=== PATIENT | female | born 2000 | race Caucasian/White ===

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

== ENCOUNTER 2020-09-20 04:55 | Inpatient (IN) ==
[2020-09-20] MEDS ORDERED: Oxytocin/Ringers Lactate 20 UNITS/1,000 ML BAG IV ONE (05:02)
[2020-09-20] MEDS ORDERED: ceFAZolin SODIUM/DEXTROSE,ISO 2 GM/50 ML BAG IV PRN (05:15)
[2020-09-20] MEDS: RINGER'S SOLUTION,LACTATED 1,000 ML IV PRN ×2 (05:31→06:32)
[2020-09-20 05:44] LABS: Cocaine Ur Negative (NEGATIVE); Urine Barbiturate Negative (NEGATIVE); Urine Benzodiazepines Negative (NEGATIVE); Urine Opiates Negative (NEGATIVE); Urine PCP Negative (NEGATIVE); Urine THC Negative (NEGATIVE)
[2020-09-20] MEDS ORDERED: CLINDAMYCIN IN 0.9 % SOD CHLOR 900 MG/50 ML BAG IV ONE (06:42)
[2020-09-20] MEDS ORDERED: BUPIVACAINE HCL 50 ML VIAL IJ ONE (07:23)
[2020-09-20] MEDS ORDERED: ONDANSETRON HCL/PF 2 MG/ML VIAL ONE (07:24)
[2020-09-20] MEDS ORDERED: MIDAZOLAM HCL/PF 5 MG/ML VIAL ONE (07:24)
[2020-09-20] MEDS ORDERED: fentaNYL CITRATE/PF 50 MCG/ML AMPUL ONE (07:24)
[2020-09-20] MEDS ORDERED: diphenhydrAMINE HCL 50 MG/ML VIAL IV PRN (07:28)
[2020-09-20] MEDS ORDERED: PROCHLORPERAZINE EDISYLATE 5 MG/ML VIAL IV PRN (07:28)
[2020-09-20] MEDS ORDERED: HYDROmorphone HCL 2 MG/ML VIAL IV PRN (07:28)
[2020-09-20] MEDS ORDERED: NALOXONE HCL 0.4 MG/ML VIAL IV PRN (07:28)
--- NOTE | 2020-09-20 07:31 | ANES ---
Anesthesia Pre Procedure Eval Vitals/Labs: Last Vital Signs Temp 36.6 C 09/20/20 05:18 Pulse 88 09/20/20 05:18 Resp 16 09/20/20 05:18 BP 104/55 09/20/20 05:18 Pulse Ox 97 09/20/20 05:18 HOME MEDICATIONS prenat.vits,gray,[id number] 1 tab PO DAILY 02/28/20 [Last Taken 09/19/20] ferrous sulfate 325 mg (65 mg iron) tablet 325 mg PO BID #30 tab 06/27/20 [Last Taken 09/20/20] Allergies/Adverse Reactions: Allergies Allergy/AdvReac Type Severity Reaction Status Date / Time Penicillins Allergy Severe Hives Verified 09/11/20 13:04 - Planned Procedure Planned Procedure: c section Medication List Reviewed:: Yes Allergies Verified: Yes Medical History (Last Reviewed 09/20/20 @ 07:29 by Kenan Paul CRNA) Anemia (Acute) Onset Date: 06/27/20 w/ Asthma (Chronic) Anxiety and depression (Chronic) Anxiety Onset Date: 09/02/17 Asthma Onset Date: Unknown activity induced Auditory hallucinations Onset Date: ~11/2017 Body piercing Onset Date: Unknown Depression Onset Date: 09/02/17 Tattoos Onset Date: Unknown Chorioamnionitis Onset Date: Unknown Heart murmur Onset Date: Unknown History of self mutilation Onset Date: 09/02/17 Hypokalemia Onset Date: 01/20/18 with /time of delivery Intentional self-harm by blunt object Onset Date: Unknown previous cutter Late care Onset Date: 09/02/17 delivery Onset Date: 01/21/18 PCS 36 5/7 weeks Surgical History (Last Reviewed 09/20/20 @ 07:29 by Kenan Paul CRNA) Previous section (Chronic) x2 Previous section Onset Date: 01/21/18 01/21/2018- Failure to progress , 2019- rpt Family History (Last Reviewed 09/20/20 @ 07:30 by Kenan Paul CRNA) Father Hypertension Alcohol abuse Grandfather Diabetes maternal Hypertension Grandmother Hypertension Anxiety maternal Depression Grandmother Anxiety paternal Depression Mother Depression Anxiety Hypertension Gestational diabetes Heart murmur - Family Anesthesia History Family History:: no untoward family reactions to anesthesia, no familial bleeding tendencies, no family history of clotting disorders, no family history of premature - Airway/Neck/Teeth Teeth Condition: intact Mallampatti Score: 2 Thyromental (T-M) distance: > 6 cm Mandibulo Hyoid distance: > 3 cm - Respiratory Respiratory Physical: lungs clear - Cardiovascular Tolerate Activity: Good Heart Sounds: S1 & S2, Regular - Gastrointestinal NPO since: mn - Anesthesia Assessment and Plan ASA Class: PS, II Anesthesia Type Plan: Block - Bilateral ultrasound guided TAP blocks for postop analgesia, Spinal
[2020-09-20] MEDS ORDERED: IBUPROFEN 800 MG TABLET PO PRN (09:12)
[2020-09-20] MEDS ORDERED: BISACODYL 10 MG SUPP.RECT RC PRN (09:12)
[2020-09-20] MEDS ORDERED: ONDANSETRON HCL/PF 2 MG/ML VIAL IV PRN (09:12)
[2020-09-20] MEDS ORDERED: SENNOSIDES 8.6 MG TABLET PO PRN (09:12)
[2020-09-20] MEDS ORDERED: SIMETHICONE 80 MG TAB.CHEW PO PRN (09:12)
--- NOTE | 2020-09-20 09:19 | OR ---
Operative Report - Dictated Report Narrative: Indication: 20-year-old 3 para 2 at 39 3/7 weeks with prior section x2 desires repeat low transverse areas in section. status: Planned Pre Operative Diagnosis: Intrauterine 39-3/7 weeks. Prior section x2. Post Operative Diagnosis: Same. Procedure: Repeat low transverse section. Abdominal scar revision - 16cm Surgeon: Parag Robison DO Zinc Plate Cutter: OR Staff Anesthesia: Spinal, TAP block Estimated Blood Loss: 300 mL Urine Output: 100 mL clear urine Fluids Replacement: 1700 mL of crystalloid Drains: Calderon to gravity Surgical Complications: None Specimens: Placenta to freezer Findings: Female born at 0807 on 09/20/2020 with Apgars 9 and 9, weighing 3104 g in cephalic presentation. Very thin lower uterine segment with 3 x 7 cm window. Normal tubes and ovaries Technique: The patient was taken to the operating room and placed in dorsal supine position with a left lateral tilt. After adequate spinal anesthesia, calderon catheter inserted, SCDs placed, and 900 mg of clindamycin given preoper atively, the previous scar was excised in an elliptical fashion and the abdominal cavity was entered using sharp and blunt dissection. Two rolled laps were placed in the pericolic gutters on either side of the uterus. The window in the lower uterine segment was perforated with my finger then extended laterally and upwardly with digital traction. Clear fluid was noted upon amniotomy. The was delivered easily. After approximately 30 seconds, the cord was clamped and cut and infant was handed off to awaiting nurse. The placenta was allowed to deliver spontaneously. The uterus was cleared of clot and debris. The bladder was dissected further away from the lower uterine segment to allow greater purchase of tissue in an effort to thicken the lower uterine segment. Uterine incision was closed with 0 Vicryl using a running stitch. A second imbricating layer was placed. Excellent hemostasis was noted. The rolled laps were removed from the abdominal cavitiy. The peritoneum was closed with a running 3-0 Monocryl. The same suture was used to approximate the rectus and pyramidalis muscles. The fascia was closed with a running 0 Vicryl. The subcutaneous layer was closed with a running 3-0 Monocryl. The same suture was used to approximate the subdermal layer. The skin was closed with a running 4-0 Monocryl and Dermabond. Sponge, lap, needle, and instrument count were correct x 2. Disposition: To post anesthesia care unit in good condition
--- NOTE | 2020-09-20 09:23 | ANES ---
Post Anesthesia Discharge - Transfer of Care Transfer of Care handoff given to nurse: Yes - Discharge from PACU Discharge from PACU when meets criteria: Yes - Discharge to ASU Discharge to ASU-no complications/pt stable: Yes
--- NOTE | 2020-09-20 09:24 | ANES ---
Anesthesia Procedure Note Procedure Note: ANESTHESIA PROCEDURE NOTE Date of Procedure: 09/20/2020 Time of procedure: 914. Performed by: Kenan Paul CRNA Regional Forester: None. Preprocedure diagnosis: Repeat . Post procedure diagnosis: Same. Procedure: Bilateral ultrasound-guided transversus abdominis plane block for postop analgesia. Indications: The patient is a 20-year-old female post section. Findings: See below. Details of the procedure: ChloraPrep was used on the patient's abdomen and the procedure was performed under sterile technique. The right abdominal fascial layer between the internal oblique muscle and the transversus abdominis muscles was identified under ultrasound guidance. A 21-gauge 4 inch block needle was inserted under ultrasound guidance to the target fascial plane. 15 mL's of 0.5% bupivacaine was injected after negative aspiration for blood. The needle was removed intact and the procedure was then repeated at the left side. No complications were noted. The images were retained in the hospital medical database. EBL: Minimal. Fluids: N/A. Specimen: N/A. Post procedure condition: The patient tolerated the procedure well. No complications were noted. Thank you for this consultation. Kenan Paul CRNA
[2020-09-20] MEDS ORDERED: OXYTOCIN/0.9 % SODIUM CHLORIDE 30 UNITS/500 ML BAG IV ONE (10:22)
[2020-09-20] MEDS ORDERED: ACETAMINOPHEN 1,000 MG/100 ML BTL IV ONE (10:22)
[2020-09-20] MEDS: DOCUSATE SODIUM 100 MG CAPSULE PO SCH ×2 (10:33→20:04)
[2020-09-20] MEDS ORDERED: METHYLERGONOVINE MALEATE 0.2 MG/ML VIAL ONE (10:47)
[2020-09-20] MEDS ORDERED: METHYLERGONOVINE MALEATE 0.2 MG/ML VIAL IM STA (10:48)
[2020-09-20] MEDS ORDERED: TRANEXAMIC ACID IV PRN (11:10)
[2020-09-20] MEDS ORDERED: NORMAL SALINE IV PRN (11:10)
[2020-09-20] MEDS ORDERED: RINGER'S SOLUTION,LACTATED 1,000 ML IV PRN (11:18)
--- NOTE | 2020-09-20 11:29 | ANES ---
Post Anesthesia Assessment - Vital Signs Vitals: Last Vital Signs Temp 36.4 C 09/20/20 09:45 Pulse 93 09/20/20 11:15 Resp 16 09/20/20 11:15 BP 106/61 09/20/20 11:15 Pulse Ox 100 09/20/20 11:15 Airway Patency: Normal - Mental Status Level Of Consciousness: Awake - Pain Level Pain Score: 4 - N/V Assessment Nausea/Vomiting Presence: None Dehydration:: No
[2020-09-20] MEDS: oxyCODONE HCL/ACETAMINOPHEN 1 TAB TABLET PO PRN ×4 (12:11→23:55)
--- NOTE | 2020-09-20 13:42 | PN ---
Progess Note - Interim Date: 09/20/20 Time: 13:35 Narrative: 09/20/20 13:35 Shortly after returning to labor and delivery room I was called by her nurse to evaluate her for excessive vaginal bleeding. Her uterus was semifirm with intermittent lochia. The cervix was dilated to approximately 2 to 3 cm and I was able to remove some clots from the uterine cavity but unable to get higher up. Total estimated blood loss since delivery was approximately 840 ml. After clearing the uterine cavity, administering Pitocin at 30 milliunits/min, and giving Methergine 0.2 mg IM x1 her bleeding became minimal. Lochia over the past 2 hours has been within normal limits. She is having more postoperative discomfort. Since she is improving clinically, will resume regular diet so she can have oral pain medication.
[2020-09-20] MEDS: IBUPROFEN 800 MG TABLET PO PRN ×2 (14:01→20:05)
[2020-09-20] MEDS ORDERED: ENOXAPARIN SODIUM 40 MG/0.4 ML SYRG SC SCH (17:00)
[2020-09-21] MEDS: IBUPROFEN 800 MG TABLET PO PRN ×2 (04:59→18:43)
[2020-09-21] MEDS: oxyCODONE HCL/ACETAMINOPHEN 1 TAB TABLET PO PRN ×3 (04:59→18:43)
[2020-09-21] MEDS ORDERED: ceFAZolin SODIUM 1 GM VIAL IV PRN (06:00)
--- NOTE | 2020-09-21 08:47 | PN ---
Subjective - Date and Time Seen Date: 09/21/20 Time: 08:39 Objective - Vitals Vitals: Last Vital Signs Temp 36.4 C 09/21/20 05:00 Pulse 84 09/21/20 05:00 Resp 18 09/21/20 05:00 BP 104/59 09/21/20 05:00 Pulse Ox 98 09/21/20 05:00 Patient denies complaints. Specifically denies headache, weakness, and lightheadedness. Tolerating regular diet. Ambulating without difficulty. Pain well controlled. Lochia wnl. Abdomen - soft, appropriately tender Incision -clean, dry, intact Uterus - firm, at umbilicus -2 No calf tenderness Impression: Post op day #1 s/p repeat section. Abdominal scar revision. Mild hemorrhage-resolved Plan: Continue routine post-operative/ care Cauti Physician Documentation - Urinary Catheter Management Urethral (Gaffney) Date of Insertion: 09/20/20 Time of Insertion: 07:50 Date of Removal: 09/20/20 Time of Removal: 20:35
[2020-09-21] MEDS: DOCUSATE SODIUM 100 MG CAPSULE PO SCH ×2 (10:26→21:16)
[2020-09-22] MEDS: oxyCODONE HCL/ACETAMINOPHEN 1 TAB TABLET PO PRN ×2 (00:49→10:45)
[2020-09-22] MEDS: IBUPROFEN 800 MG TABLET PO PRN (00:50)
[2020-09-22] MEDS: DOCUSATE SODIUM 100 MG CAPSULE PO SCH (09:31)
[2020-09-22 09:37] VITALS: BP 121/69
--- NOTE | 2020-09-22 10:27 | PN ---
Subjective - Date and Time Seen Date: 09/22/20 Time: 10:21 Objective - Vitals Vitals: Last Vital Signs Temp 36.9 C 09/22/20 08:50 Pulse 80 09/22/20 08:50 Resp 18 09/22/20 08:50 BP 121/69 09/22/20 08:50 Pulse Ox 99 09/22/20 08:50 Patient denies complaints. Ambulating well. Tolerating regular diet. Pain well controlled. Bottlefeeding Lochia wnl. Abdomen - soft, appropriately tender Incision -clean, dry, intact uterus - firm, at umbilicus -2 No calf tenderness Impression: Post op day #2 s/p repeat section. hemorrhage due to uterine atony with estimated blood loss around 800 mL-resolved and patient stable/asymptomatic. Desires discharge to home today. Plan: Continue routine post-operative/ care. Routine discharge instructions. Follow-up in the office in 1 week for incision check and Depo- Provera shot. Cauti Physician Documentation - Urinary Catheter Management Urethral (Gaffney) Date of Insertion: 09/20/20 Time of Insertion: 07:50 Date of Removal: 09/20/20 Time of Removal: 20:35 Assessment/Plan - Problems/Diagnosis (1) Uterine atony, , current hospitalization Problem: Resolved (2) Anemia Problem: Chronic Qualifiers: Anemia type: iron deficiency Iron deficiency anemia type: inadequate dietary iron intake Qualified Code(s): D50.8 - Other iron deficiency anemias (3) Delivery by section of full-term Problem: Acute (4) Anxiety and depression Problem: Chronic (5) Asthma Problem: Chronic Qualifiers: Asthma severity: mild Asthma persistence: intermittent Asthma complication type: uncomplicated Qualified Code(s): J45.20 - Mild intermittent asthma, uncomplicated
--- NOTE | 2020-09-22 10:35 | DS ---
OB Discharge Summary (1) Uterine atony, , current hospitalization Status: Resolved (2) Anemia Status: Chronic Qualifiers: Anemia type: iron deficiency Iron deficiency anemia type: inadequate dietary iron intake Qualified Code(s): D50.8 - Other iron deficiency anemias (3) Delivery by section of full-term infant Status: Resolved (4) Anxiety and depression Status: Chronic (5) Asthma Status: Chronic Qualifiers: Asthma severity: mild Asthma persistence: intermittent Asthma complication type: uncomplicated Qualified Code(s): J45.20 - Mild intermittent asthma, uncomplicated Delivery Date: 09/20/20 Delivery Time: 08:07 :: 3 Para:: 3 Gestational weeks:: 39 Gestational days:: 3 Intrapartum Procedures: Secondary Section, Delivery-Low Transverse, Anesthesia - Spinal Procedures: Other - IV pitocin, manual uterine evacuation of clots /OP Complications: Hemorrhage-Uterine Atony Discharge Diagnosis: Term -Delivered, Other - Uterine window (3x7cm) at time of section - Discharge Information Date of Discharge: 09/22/20 Hospital Course: 20-year old 3 para 2 admitted at 39-3/7 weeks for repeat low transverse section. At the time of surgery a 3 x 7 cm window was noted in the lower uterine segment. Within the first 2 hours after delivery the patient developed uterine atony and had approximately 840 mL blood loss which was controlled with IV Pitocin and manual evacuation of clots from the uterus. The anterior uterine wall was palpably intact. Patient's postoperative course from this point on was uncomplicated and she was discharged on postoperative day #2 with routine discharge instructions. She was informed of uterine window findings on time of her and counseled to avoid future surgeries. Patient desires Mirena IUD for control. She will follow-up in the office in 1 week for an incision check and Depo-Provera shot to allow the uterine wall time to heal enough for insertion of a Mirena IUD. Discharge Location: Home Disposition: Home self-care Condition: Good Activity on Discharge:: Activity as tolerated, Pelvic Rest, No lifting Discharge Diet: General/regular food Additional Patient Instructions (free text): *Ozzie' follow up appt is on 09/25/2020 @ 1:15PM with Dr. Ward at the [facility] office. Her Blood Type is O+. Her Weight Today is 6 pounds 8.4 ounces. Her Bilirubin is 4.9 @ 44 hours of age. Feed her on demand or at least every 3-[address] her on her back in her own crib or bassinet for sleep. No pillows, blankets, stuffed animals, or bumper pads in her sleep space. *Ivelisse, Your follow up appt is on , 09/28/2020 @ 2:15PM with Dr Robison for an incision check. Please call with any questions/concerns. [facility] [phone], [facility] P[facility] [phone], [facility] [phone]. Bad tableComplete Home Medications List: Complete Home Medication List: prenat.vits,gray,[id number] 1 tab PO DAILY 02/28/20 ferrous sulfate 325 mg (65 mg iron) tablet 325 mg PO BID #30 tab 06/27/20 Ibuprofen [Motrin] 200 - 800 mg PO Q6H PRN #100 tab 09/21/20 oxyCODONE HCL/ACETAMINOPHEN [Percocet 5 MG/325 MG] 1 tab PO Q4H PRN #10 tab 09/21/20 - Plan Discharge to:: Home Follow up in office in:: 1 week - [place] Information Weight (Grams): 3,104 Sex: Female Score 1 min: 9 Score 5 min: 9 Complications: None Other Complications: NCX1. 3x7 cm uterine window, hemorrhage
== END 2020-09-22 12:00 | disposition home or self-care (01) | DRG 787 ==
LOC: OB 04:55
PROVIDERS: ADMIT Obstetrics & Gynecology; ATTEND Obstetrics & Gynecology